=== PATIENT | female | born 1955 | race Caucasian/White ===

== ENCOUNTER 2019-08-03 10:18 | Day surgery (SDC) | payer MEDICARE ==
[~2019-08-03 10:18] MED LIST: LACTATED RINGERS 1,000 ML IV.SOLN IV ONE; LIDOCAINE HCL 2% PF 100MG/5ML VIAL IJ ONE; MIDAZOLAM HCL 2 MG/2 ML VIAL ONE; ONDANSETRON HCL/PF 4 MG/ 2ML VIAL ONE; PROPOFOL 200 MG/20 ML VIAL IV ONE; SEVOFLURANE 250 ML LIQUID IH ONE; fentaNYL CITRATE/PF 100 MCG/2 ML INJ. ONE
== END 2019-08-03 13:05 | disposition home or self-care (01) ==
LOC: OPSURG 10:18
PROVIDERS: ATTEND Specialist
DX: M99.15 Subluxation complex (vertebral) of pelvic region (principal); M70.61 Trochanteric bursitis, right hip; M99.06 Segmental and somatic dysfunction of lower extremity; M47.26 Other spondylosis with radiculopathy, lumbar region; M99.02 Segmental and somatic dysfunction of thoracic region; M47.812 Spondylosis without myelopathy or radiculopathy, cervical region
CPT/HCPCS: 22505; 27198; 27275; J2001; J2250; J2405; J2704; J3010; J7120

== ENCOUNTER 2019-08-04 10:18 | Day surgery (SDC) | payer MEDICARE ==
[~2019-08-04 10:18] MED LIST changes: +FAMOTIDINE 20 MG/2 ML VIAL IV ONE; -MIDAZOLAM HCL 2 MG/2 ML VIAL ONE; +SUCCINYLCHOLINE CHLORIDE 200 MG/10 ML VIAL ONE
== END 2019-08-04 14:45 | disposition home or self-care (01) ==
LOC: OPSURG 10:18
PROVIDERS: ATTEND Specialist
DX: M99.15 Subluxation complex (vertebral) of pelvic region (principal); M70.61 Trochanteric bursitis, right hip; M99.06 Segmental and somatic dysfunction of lower extremity; M47.26 Other spondylosis with radiculopathy, lumbar region; M99.02 Segmental and somatic dysfunction of thoracic region; M47.812 Spondylosis without myelopathy or radiculopathy, cervical region
CPT/HCPCS: 22505; 27198; 27275; J0330; J2001; J2405; J2704; J3010; J7120

== ENCOUNTER 2019-08-05 10:00 | Day surgery (SDC) | payer MEDICARE ==
[~2019-08-05 10:00] MED LIST changes: -FAMOTIDINE 20 MG/2 ML VIAL IV ONE; +KETOROLAC TROMETHAMINE 30 MG/1ML VIAL ONE; -ONDANSETRON HCL/PF 4 MG/ 2ML VIAL ONE; -SEVOFLURANE 250 ML LIQUID IH ONE; -SUCCINYLCHOLINE CHLORIDE 200 MG/10 ML VIAL ONE; -fentaNYL CITRATE/PF 100 MCG/2 ML INJ. ONE
== END 2019-08-05 13:00 | disposition home or self-care (01) ==
LOC: OPSURG 10:00
PROVIDERS: ATTEND Specialist
DX: M99.15 Subluxation complex (vertebral) of pelvic region (principal); M70.61 Trochanteric bursitis, right hip; M99.06 Segmental and somatic dysfunction of lower extremity; M47.26 Other spondylosis with radiculopathy, lumbar region; M99.02 Segmental and somatic dysfunction of thoracic region; M47.812 Spondylosis without myelopathy or radiculopathy, cervical region
CPT/HCPCS: 22505; 27198; 27275; J1885; J2001; J2704; J7120